=== PATIENT | female | born 1995 | race African-American/Black ===

== ENCOUNTER → 2023-05-03 | Emergency (ER) | payer OTHER ==
[~2023-05-03] VITALS: Ht 165.1 cm; Wt 83.0 kg
[2023-05-03 23:09] VITALS: BP 129/77; TEMP 98.1; O2SAT 98
== END | disposition home or self-care (01) ==
LOC: ER 22:00
DX: F41.0 Panic disorder [episodic paroxysmal anxiety] (principal)